=== PATIENT | male | born 2000 | race African-American/Black ===

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

== ENCOUNTER 2021-06-10 18:22 | Emergency (ER) | payer OTHER ==
[2021-06-10 19:28] VITALS: BP 109/64; PULSE 56; TEMP 97; BMI 29.0
== END 2021-06-10 21:04 | disposition home or self-care (01) ==
LOC: JERFT 18:22
DX: R06.02 Shortness of breath (principal)
CPT/HCPCS: 71046-TC-FY; 93005; 93010; 99284-25

== ENCOUNTER 2022-03-16 12:50 | Emergency (ER) | payer SELFPAY ==
[2022-03-16 12:56] VITALS: BP 113/62; PULSE 97; TEMP 98.6; BMI 26.4
== END 2022-03-16 14:49 | disposition home or self-care (01) ==
LOC: JER 12:50
DX: R06.02 Shortness of breath (principal)
CPT/HCPCS: 0241U-QW; 71046-TC-FY; 99284-25